=== PATIENT | male | born 1995 | race Caucasian/White ===

== ENCOUNTER 2020-06-12 01:32 | Emergency (ER) | payer OTHER ==
[~2020-06-12] VITALS: Ht 185.4 cm; Wt 63.5 kg
== END 2020-06-12 02:48 | disposition home or self-care (01) ==
LOC: ED 01:32
DX: S63.501A Unspecified sprain of right wrist, initial encounter (principal); V28.9XXA Unspecified motorcycle rider injured in noncollision transport accident in traffic accident, initial encounter; F17.200 Nicotine dependence, unspecified, uncomplicated
CPT/HCPCS: 73090; 99283-25; A9270

== ENCOUNTER 2020-06-25 15:12 | Emergency (ER) | payer OTHER ==
[~2020-06-25] VITALS: Ht 185.4 cm; Wt 63.5 kg
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
[2020-06-25] MEDS ORDERED: CLEOCIN HCL300 MG PO (18:17)
== END 2020-06-25 18:53 | disposition home or self-care (01) ==
LOC: ED 15:12
DX: L03.114 Cellulitis of left upper limb (principal); L02.414 Cutaneous abscess of left upper limb; F17.200 Nicotine dependence, unspecified, uncomplicated
CPT/HCPCS: 80048; 83605; 85025; 96374; 96375; 99283-25; J1885; J3490; J7030